=== PATIENT | male | born 1985 | race Caucasian/White ===

== ENCOUNTER 2021-08-18 18:07 | Emergency (ER) | payer BC, SELFPAY ==
[2021-08-18 18:18] VITALS: BP 188/107; PULSE 97; RESP 20; TEMP 36.7; O2SAT 100
--- NOTE | 2021-08-18 19:20 | ED.MALEGU ---
HPI - Male Genitourinary General Chief complaint: Urogenital-Male Stated complaint: urinary symptoms Time Seen by Provider: 08/18/21 19:21 Source: patient and RN notes reviewed Mode of arrival: ambulatory Limitations: no limitations History of Present Illness HPI Narrative: 36-year-old male presents concern for ear fullness. He reports symptoms have been going on for 1 week. Reports he is urinating but may not be emptying his bladder fully. He reports he has had multiple partners without protection. He reports possible STD exposure. He denies any penile discharge, lesions, dysuria. Reports urine frequency. Denies abdominal pain, fevers, nausea, vomiting. Reports normal bowel movements. Denies testicular redness, swelling, pain MD Complaint: other (Bladder bloating) Related Data Home Medications Medication Instructions Recorded Confirmed No Home Medications 08/18/21 08/18/21 Allergies Allergy/AdvReac Type Severity Reaction Status Date / Time No Known Allergies Allergy Verified 08/18/21 18:28 Review of Systems Review of Systems: CONSTITUTIONAL: Denies malaise, chills, sweats, or fever. CARDIOVASCULAR: Denies chest pain, palpitations, or edema. RESPIRATORY: Denies cough or dyspnea. GASTROINTESTINAL: Denies abdominal pain, nausea, vomiting, diarrhea, bloody, or mucous stools. GENITOURINARY: Denies dysuria or hematuria. Reports bladder fullness, urine frequency SKIN: Denies rash or itching, genital lesions. MUSCULOSKELETAL: Denies back pain or myalgia. All systems reviewed & are unremarkable except as noted in HPI and below PMFSH Comments At time of signature, agree with nursing past medical, surgical, social and family history. There is no relevant family history pertinent to the presenting complaint Exam Narrative: GENERAL: Well-appearing, well-nourished, and in no acute distress. HEAD: Normocephalic, atraumatic. EYES: PERRLA, sclera clear ENT: Mucous membranes moist. NECK: Supple CHEST: No respiratory distress. Clear to auscultation. No bony deformities, no asymmetry. Speaks in full sentences. HEART: Regular rate and rhythm. No murmur heard. Normal peripheral pulses. ABDOMEN: Soft, nontender, nondistended, normal active bowel sounds, no palpable masses. SKIN: Warm, dry, no visible rash. NEURO: Alert and oriented x3. PSYCH: Normal mood and affect Course Course Emergency Course: Discussed with patient, seeking care in emergency room if symptoms worsen, do not improve. Patient is aware of diagnosis, understands and agrees to treatment plan. Anticipatory guidance given. Patient agrees to follow-up as directed and is aware of reasons to seek care at the emergency department. Portions of this record may have been created with voice recognition software Vital Signs Vital signs: Vital Signs Temperature 98.1 F 08/18/21 18:18 Pulse Rate 97 08/18/21 18:18 Respiratory Rate 20 08/18/21 18:18 Blood Pressure 188/107 H 08/18/21 18:18 Pulse Oximetry 100 08/18/21 18:18 Temperature 98.1 F 08/18/21 18:18 Pulse Rate 97 08/18/21 18:18 Respiratory Rate 20 08/18/21 18:18 Blood Pressure 188/107 H 08/18/21 18:18 Pulse Oximetry 100 08/18/21 18:18 Reviewed. MDM - Male Genitourinary MDM Narrative Medical decision making narrative: Exam findings and UA show no acute concerns or changes; patient is non-toxic appearing and is in no distress. Patient is appropriate for outpatient treatment and follow-up. Differential Diagnosis Differential diagnosis: Likely urinary tract infection, urethritis, epididymitis, prostatitis and acute retention of urine Lab Data Labs: Lab Results 08/18/21 Range/Units 18:32 C.trachomatis RNA (TMA) Pending N.gonorrhoeae RNA (TMA) Pending T. vaginalis Amp RNA Pending Urine Glucose Negative Reference Range: Negative Urine Bilirubin Negative
--- NOTE | 2021-08-18 19:30 | PC.NURSE ---
PROVIDER DECIDED TO CULTURE URINE.
[2021-08-18] MEDS: LIDOCAINE HCL 1% LOCAL INJ 20 ML VIAL 2.1 ML IM (19:33)
[2021-08-18] MEDS: cefTRIAXone 1 GM VIAL 0.5 GM IM (19:34)
== END 2021-08-18 19:54 | disposition home or self-care (01) ==
PROVIDERS: Emergency Provider Nurse Practitioner
DX: Z20.2 Contact with and (suspected) exposure to infections with a predominantly sexual mode of transmission (principal)
CPT/HCPCS: 81003; 87086; 87491; 87591; 87661; 96372; 99213; G0463; J0696